=== PATIENT | female | born 2000 | race Caucasian/White ===

== ENCOUNTER → 2023-11-23 13:45 | Outpatient (REF) | payer OTHER, SELFPAY | LOC: HWRAD 13:45 | PROVIDERS: ATTENDING PHYSICIAN Family Medicine | DX: J34.2 Deviated nasal septum (principal) | CPT/HCPCS: 70486 ==

== ENCOUNTER 2024-01-07 23:57 | Emergency (ER) | payer OTHER, SELFPAY ==
[2024-01-07 23:58] VITALS: BP 115/82; BMI 17.2
[2024-01-08 00:13] LABS: % Basophils 0.4 % (0-2); % Immature Granulocytes 0.3 % (0-0.5); % Lymphocytes 10.5 % (20.5-51.1); % Neutrophils 80.8 % (42.2-75.2); Absolute Basophils 0.1 10^3/uL (0-0.2); Absolute Eosinophils 0.1 10^3/uL (0-0.7); Absolute Lymphocytes 1.5 10^3/uL (1.2-3.4); Absolute Neutrophils 11.2 10^3/uL (1.4-6.5); Hematocrit 31.7 % (37.0-47.0); Mean Corp Hgb Conc. 34.7 g/dL (33.0-37.0); Mean Corpuscular Hgb 28.7 pg (27.0-31.0); Mean Corpuscular Volume 82.8 fL (81.0-99.0); Mean Platelet Volume 9.3 fL (7.4-10.4); Nucleated Red Blood Cells % 0 %; Platelet Count 250 10^3/uL (130-400); Red Blood Cell Count 3.83 10^6/uL (4.20-5.40); White Blood Cell Count 13.9 10^3/uL (4.8-10.8)
--- NOTE | 2024-01-08 00:27 | ED.GENMED ---
History of Present Illness
General
Chief Complaint: Dehydration Symptoms
Source: patient
Exam Limitations: none
Time Seen by Provider: 01/08/24 00:06
History of Present Illness
History of Present Illness:
This is a 23 year old female that comes in with c/o sunburn. States that she was at the beach today and did not ate or drink much. States that she also got very sunburned. States that she was asleep and awoke and then started to vomit. States that
she had chills. Denies any fever, chest pain, SOB, abd pain, diarrhea, headache, dizziness, urinary burning.
Past History
Past History
ED Past Medical History: Psychiatric (Anxiety); Negative Asthma, HTN, Hypercholesterolemia or NIDDM
ED Past Surgical History: None
Social History
Tobacco: Non-smoker
Alcohol: None
Personal: Single
Living: with family
Review of Systems
Review of Systems
All Other Systems: ROS reviewed and negative except as documented in HPI and ROS
Constitutional: Reports chills; Denies fever
EENT: Reports no symptoms
Respiratory: Reports no symptoms; Denies cough or trouble breathing
Cardiac: Reports no symptoms; Denies chest pain
ABD/GI: Reports nausea and vomiting; Denies abdominal pain or diarrhea
: Reports no symptoms; Denies dysuria, frequency or urgency
Musculoskeletal: Reports no symptoms
Skin: Reports no symptoms
Neurological: Reports no symptoms; Denies dizzy or headache
Psychiatric: Reports no symptoms
Phy Exam
General Physical Exam
General Presentation: no apparent distress
General age: appears stated age
General Skin: warm and dry
General Habitus: normal
General Mental: alert
General Hydration: dry mucous membranes
ENT Exam
ENT Exam: TM's normal, pharynx normal and neck supple
Eye Exam
Eye Exam: EOMI
Cardiovascular Exam
Cardiovascular Exam: no edema, no murmur, normal peripheral pulses and tachycardia
Pulmonary Exam
Pulmonary Exam: lungs clear, no respiratory distress, no rales, no crackles, no rhonchi, no wheezing and no cough
Gastrointestinal Exam
Gastrointestinal Exam: normal bowel sounds, non tender, soft, no organomegaly, no pulsatile mass and non distended
Musculoskeletal Exam
Musculoskeletal Exam: full ROM and no edema
Skin Exam
Skin Exam: normal color, warm/dry, no petechia and other (Sunburn of the back and posterior legs)
Psychiatric Exam
Psychiatric Exam: normal mood/affect
Course
Orders/Labs/Results
Orders:
Orders
01/08/24 00:04
Test Result ONCE
01/08/24 00:05
Basic Metabolic Panel Urgent
Complete Blood Count/With Diff Urgent
HCG, Serum Qualitative Screen Urgent
01/08/24 00:26
0.9% Sodium Chloride 1000 ml [Nss] 1,000 ml IV BOLUS
01/08/24 00:29
Ondansetron Injectable [Zofran] 4 mg IV NOW STA
01/08/24 00:34
Ketorolac [Toradol] 30 mg .ROUTE .STK-MED ONE
01/08/24 00:35
Ketorolac [Toradol] 30 mg IV NOW STA
Abnormal Lab Results
01/08/24
00:05
WBC 13.9 H 10^3/uL
(4.8-10.8)
RBC 3.83 L 10^6/uL
(4.20-5.40)
Hgb 11.0 L g/dL
(12.0-16.0)
Hct 31.7 L %
(37.0-47.0)
Absolute Neuts (auto) 11.2 H 10^3/uL
(1.4-6.5)
Absolute Monos (auto) 1.0 H 10^3/uL
(0.1-0.6)
Neutrophils % 80.8 H %
(42.2-75.2)
Lymphocytes % 10.5 L %
(20.5-51.1)
Glucose 109 H mg/dl
(70-99)
01/08/24 00:05
01/08/24 00:05
Leukocytosis, H/H slightly low. Glucose nonfasting. HCG negative
Vital Signs
Initial and Last Documented VS:
Initial Vital Signs
Temp Pulse Resp BP Pulse Ox
98.7 F 114 16 115/82 99
01/07/24 23:58 01/07/24 23:58 01/07/24 23:58 01/07/24 23:58 01/07/24 23:58
Last Documented Vital Signs
Temp Pulse Resp BP Pulse Ox
98.7 F 109 16 110/75 99
01/07/24 23:58 01/08/24 01:00 01/08/24 01:00 01/08/24 01:00 01/08/24 01:00
MDM/Problems Addressed
Differential Diagnosis Includes:
Sunburn,
MDM/Problems Addressed:
This is a 23 year old female that comes in with c/o sunburn. States that she was at the beach and did not eat or drink much. States that she awoke form sleep tonight and then vomited. States that she is also very sunburned.
Will check labs and give IV fluids
Back into see patient. States that she is feeling much better. Encouraged patient to increase her water intake to 8-8oz glasses daily. Use Aloe or Vit E cream to her sunburn. Follow up with the family doctor as needed. Return with any concerns.
Chronic conditions affecting care:
NA
Acute Exacerbation and/or Progression of Chronic Illness:
NA
*Pulse Oximetry
Patient hypoxic: no
*EKG
Interpreted by ED Provider?: NA
Rate: EKG- N/A
*Sheet Metal Journeyman Interpretation
Rate: Sheet Metal Journeyman- N/A
*Critical Care Note
Total Time (30-74mins, 75-104mins- exclusive of procedures): Not Applicable
ED Attending Note
-
Portions of this chart may have been created with voice recognition software.� Occasional wrong word or��sound alike� substitutions may have occurred due to the inherent limitations of voice recognition software.
Discharge Plan
Departure
Patient Disposition: Home (Routine Discharge)
Date of Disposition: 01/08/24
Time of Disposition: 01:35
Patient with high blood pressure during this ER visit?: No
Condition: Good
Covid-19: Not Applicable
Discharge Problem:
Dehydration, Sunburn
Instructions: Dehydration, Adult (DC), Sunburn (DC)
Prescriptions:
No Action
paroxetine HCl 20 mg Tablet
20 mg PO DAILY
Referrals:
Jonnie Melgar Jr., MD [Family Provider] - As needed
Activity Restrictions/Additional Instructions:
As discussed, please increase your water intake to 8-8oz glasses daily. You may use an Aloe cream or Vit E to the sunburn to help with healing. Follow up with the family doctor as needed. Ibuprofen 600mg every 6 hours as needed for pain. You have
been given IV medication here so no further Ibuprofen to the morning. IF YOU HAVE ANY OTHER CONCERNS PLEASE RETURN TO THE EMERGENCY ROOM.
Interventions
Interventions:
*Risk Screen - Suicide Last Done: 01/07/24 23:58
*General Assessment Last Done: 01/07/24 23:58
*Neglect/Abuse Screening Last Done: 01/07/24 23:58
*ED COVID-19 Vaccine History Last Done: 01/07/24 23:58
ED- Cardiac Assessment Last Done: 01/08/24 00:08
ED- Neurological Assessment Last Done: 01/08/24 00:08
ED- Pulmonary Assessment Last Done: 01/08/24 00:08
Discharge Date and Time
Print Language: ANGUILLAN
[2024-01-08] MEDS: ZOFRAN 4 MG IV (00:32)
[2024-01-08] MEDS: NSS 1000 IV (00:32)
[2024-01-08] MEDS: TORADOL 30 MG IV (00:35)
[2024-01-08 00:37] VITALS: BP 111/75
[2024-01-08 00:43] LABS: HCG, Serum Qualitative Screen Negative
[2024-01-08 00:51] LABS: Blood Urea Nitrogen 11 mg/dl (7-17); Carbon Dioxide 23 mmol/L (22-30); Chloride 106 mmol/L (98-107); Estimated Creatinine Clearance 97 ml/min; Glucose 109 mg/dl (70-99); Sodium 137 mmol/L (135-145); eGFR > 60.00
[2024-01-08 01:00] VITALS: BP 110/75
[2024-01-08 01:36] VITALS: BP 107/73
== END 2024-01-08 01:44 | disposition home or self-care (01) ==
LOC: EMR 23:57
PROVIDERS: EMERGENCY PHYSICIAN Emergency Medicine; FAMILY PHYSICIAN Family Medicine
DX: E86.0 Dehydration (principal); L55.9 Sunburn, unspecified; F41.9 Anxiety disorder, unspecified
CPT/HCPCS: 99283; 96374; 96375; 96361; 80048; 84703; 85025

== ENCOUNTER 2024-02-23 15:44 | Emergency (ER) | payer OTHER, SELFPAY ==
[2024-02-23 15:46] VITALS: BP 123/96
[2024-02-23 16:01] LABS: % Basophils 0.8 % (0-2); % Immature Granulocytes 0.5 % (0-0.5); % Lymphocytes 16.1 % (20.5-51.1); % Monocytes 4.1 % (1.7-9.3); % Neutrophils 77.5 % (42.2-75.2); Absolute Basophils 0.1 10^3/uL (0-0.2); Absolute Eosinophils 0.1 10^3/uL (0-0.7); Absolute Lymphocytes 1.3 10^3/uL (1.2-3.4); Absolute Monocytes 0.3 10^3/uL (0.1-0.6); Absolute Neutrophils 6.1 10^3/uL (1.4-6.5); Hematocrit 34.9 % (37.0-47.0); Mean Corp Hgb Conc. 34.4 g/dL (33.0-37.0); Mean Corpuscular Hgb 29.3 pg (27.0-31.0); Mean Corpuscular Volume 85.1 fL (81.0-99.0); Nucleated Red Blood Cells % 0 %; Platelet Count 330 10^3/uL (130-400); Red Cell Dist. Width 12.4 % (11.5-14.5); White Blood Cell Count 7.8 10^3/uL (4.8-10.8)
[2024-02-23 16:21] LABS: ALT (SGPT) 11 U/L (0-35); AST (SGOT) 23 U/L (14-36); Albumin 4.5 g/dl (3.5-5.0); Alkaline Phosphatase 43 U/L (38-126); Blood Urea Nitrogen 11 mg/dl (7-17); Calcium 9.8 mg/dl (8.4-10.2); Carbon Dioxide 26 mmol/L (22-30); Chloride 104 mmol/L (98-107); Glucose 135 mg/dl (70-99); Potassium 3.9 mmol/L (3.5-5.1); Sodium 141 mmol/L (135-145); Total Bilirubin 0.3 mg/dl (0.2-1.3); Total Protein 7.2 g/dl (6.3-8.2); eGFR > 60.00
[2024-02-23 16:27] LABS: HCG, Serum Qualitative Screen Negative
[2024-02-23 18:49] LABS: Urine Albumin Trace (Neg - Trace); Urine Bilirubin Negative (Negative); Urine Character Clear (Clear); Urine Color Yellow; Urine Glucose Negative (Negative); Urine Ketone Negative (Negative); Urine Leukocyte 1+ (Negative); Urine Nitrite Negative (Negative); Urine Occult Blood 4+ (Negative); Urine Urobilinogen Negative (Neg - 1+)
--- NOTE | 2024-02-23 19:26 | ED.GENMED ---
History of Present Illness
General
Chief Complaint: Abdominal Symptoms
Time Seen by Provider: 02/23/24 18:10
History of Present Illness
History of Present Illness:
23-year-old female without significant past medical history presenting to the emergency department for nausea and dry heaving. Patient reports around noon she was eating toast and a granola bar and started to have upper abdominal discomfort with
dry heaving. She called the medics to bring her to the hospital, and medics gave her Zofran. Since arriving to the hospital receiving Zofran, reports that her symptoms have improved. Reports that she is currently on her menstrual cycle, so is
having some lower abdominal cramping. Denies any present abdominal pain or urinary symptoms. Denies any vomiting. Denies chest pain or difficulty breathing. Denies any abdominal surgeries in the past. Denies additional medical complaints.
Past History
Past History
ED Past Medical History: Psychiatric (Anxiety); Negative Asthma, HTN, Hypercholesterolemia or NIDDM
ED Past Surgical History: None
Social History
Tobacco: Non-smoker
Alcohol: None
Personal: Single
Living: with family
Phy Exam
Physical Exam
Physical Exam:
General: Well-appearing, no clinical signs of dehydration, nontoxic and in no acute distress
HEENT: protecting airway
Neck: appears supple
CV: Normal heart rate, regular rhythm
Resp: No accessory muscle use, no increased work of breathing, lungs clear to auscultation bilaterally
Abd: Soft and non-distended, no tenderness to palpation
Extremities: No deformities, no swelling, no erythema, pulses and sensation intact
Neuro: alert, no focal neurologic deficit
: deferred
Rectal: deferred
Psych: Normal affect
Skin: Intact
Course
Orders/Labs/Results
Orders:
Orders
02/23/24 15:49
Test Result ONCE
02/23/24 15:53
Complete Blood Count/With Diff Urgent
Comprehensive Metabolic Panel Urgent
HCG, Serum Qualitative Screen Urgent
02/23/24 16:22
ECG [Electrocardiogram (*1)] Urgent
Reason for Study: Palpitations
EKG- Treatment ONCE
02/23/24 18:42
Urinalysis Reflex To Culture Urgent
Date Specimen was Collected: 02/23/24
Time Specimen was Collected: 18:28
Urine Microscopic Reflex Cult Urgent
Urine Culture Urgent
FEMI Source: U
Specimen Description:
Date Specimen was Collected: 02/23/24
Time Specimen was Collected: 18:28
Abnormal Lab Results
02/23/24 02/23/24
15:53 18:42
RBC 4.10 L 10^6/uL
(4.20-5.40)
Hct 34.9 L %
(37.0-47.0)
Neutrophils % 77.5 H %
(42.2-75.2)
Lymphocytes % 16.1 L %
(20.5-51.1)
Glucose 135 H mg/dl
(70-99)
Ur Occult Blood Reflex 4+ A
(Negative)
Leukocyte Esterase Rfl 1+ A
(Negative)
Urine RBC 60-70 A /HPF
(0-2)
Urine Bacteria (Reflex) Few A
(Negative)
02/23/24 15:53
02/23/24 15:53
Vital Signs
Initial and Last Documented VS:
Initial Vital Signs
Temp Pulse Resp BP Pulse Ox
99.2 F 108 20 123/96 99
02/23/24 15:46 02/23/24 15:46 02/23/24 15:46 02/23/24 15:46 02/23/24 15:46
Last Documented Vital Signs
Temp Pulse Resp BP Pulse Ox
97.8 F 108 20 106/72 97
02/23/24 19:30 02/23/24 15:46 02/23/24 15:46 02/23/24 19:30 02/23/24 19:30
MDM/Problems Addressed
MDM/Problems Addressed:
23-year-old female without significant past medical history presenting to the emergency department for nausea. Vital signs are normal.
On arrival to the hospital, patient is well-appearing, no acute distress. Reports that her symptoms have resolved after receiving Zofran from medics. Patient afebrile, nontoxic. Unremarkable abdominal exam, without any reproducible tenderness.
Does that symptoms were preceded by eating. Suspect past gastric component. Nursing protocol placed prior to my assessment, urinalysis. No indication for abdominal imaging at this time in the absence of any symptoms or tenderness.
19:30 - Labs are unremarkable, negative . Patient remains asymptomatic. At this time feel stable for discharge with continued outpatient supportive therapy. Will prescribe Zofran. Return precautions discussed and patient verbalized
understanding
*Critical Care Note
Total Time (30-74mins, 75-104mins- exclusive of procedures): Not Applicable
ED Attending Note
-
Portions of this chart may have been created with voice recognition software.� Occasional wrong word or��sound alike� substitutions may have occurred due to the inherent limitations of voice recognition software.
Discharge Plan
Departure
Patient Disposition: Home (Routine Discharge)
Date of Disposition: 02/23/24
Time of Disposition: 19:29
Patient with high blood pressure during this ER visit?: No
Condition: Good
Discharge Problem:
Nausea, Abdominal pain
Instructions: Nausea and Vomiting, Adult (DC)
Prescriptions:
New
ondansetron 4 mg Tablet,Disintegrating
4 mg PO TIDPRN PRN (Reason: nausea/vomiting) Qty: 4 0RF
No Action
paroxetine HCl 20 mg Tablet
20 mg PO DAILY
Activity Restrictions/Additional Instructions:
You were seen in the emergency department for nausea
You were found to have normal laboratory analysis, and your symptoms resolved.
Please follow-up closely with your primary care physician.
Return to the emergency department for any worsening of your symptoms, or any development of chest pain, difficulty breathing, abdominal pain with persistent vomiting and inability to tolerate food or liquid by mouth (concern for dehydration),
weakness, headache or confusion, fever greater than 100.4, or any additional symptoms that are concerning to you.
Thank you for choosing [facility].
Interventions
Interventions:
*Risk Screen - Suicide Last Done: 02/23/24 18:32
*General Assessment Last Done: 02/23/24 18:32
*Neglect/Abuse Screening Last Done: 02/23/24 18:32
ED- Fall Risk Assessment Last Done: 02/23/24 19:52
*Nursing Disposition Last Done: 02/23/24 19:52
RW-Yiipul-Wnmrrnlfva Assessment Last Done: 02/23/24 18:32
Discharge Date and Time
Discharge Date/Time: 02/23/24 19:52
Print Language: [place]
[2024-02-23 19:29] LABS: Urine Bacteria Few (Negative); Urine Red Blood Cell 60-70 /HPF (0-2)
[2024-02-23 19:30] VITALS: BP 106/72
== END 2024-02-23 19:52 | disposition home or self-care (01) ==
LOC: EMR 15:44
PROVIDERS: EMERGENCY PHYSICIAN Student in an Organized Health Care Education/Training Program; FAMILY PHYSICIAN Family Medicine
DX: R11.2 Nausea with vomiting, unspecified (principal); R10.10 Upper abdominal pain, unspecified; R10.30 Lower abdominal pain, unspecified; R00.2 Palpitations; F41.9 Anxiety disorder, unspecified
CPT/HCPCS: 99283; 80053; 81003; 81015; 84703; 85025; 87086; 93005

== ENCOUNTER 2024-04-25 06:04 | Emergency (ER) | payer OTHER, SELFPAY ==
[2024-04-25 06:05] VITALS: BP 124/83
[2024-04-25 06:39] VITALS: BMI 19.9
[2024-04-25 06:50] LABS: COVID-19 Antigen Negative (Negative)
[2024-04-25 06:51] VITALS: BP 105/87
--- NOTE | 2024-04-25 06:57 | ED.GENMED ---
ED Provider Triage
<America Amaro MD, Resident - Last Filed: 04/25/24 07:49>
-
Patient seen by provider in Triage?: Seen in Triage
History of Present Illness
<America Amaro MD, Resident - Last Filed: 04/25/24 07:49>
General
Chief Complaint: Cold/Flu/URI Symptoms
Source: patient
Exam Limitations: none
Time Seen by Provider: 04/25/24 06:21
Travel History
Have you traveled to any high risk areas for coronavirus over the past 14 days?: No
Have you had any contact with someone who has COVID-19?: No
Do you have any symptoms of coronavirus? Fever > 100 degrees, chills, cough, shortness of breath, sore throat, loss of taste or smell, muscle aches, or headache?: No
History of Present Illness
History of Present Illness:
23-year-old female with PMHx of depression on paroxetine 20 mg presented to the ER with 3-day onset of sore throat and fever. It started with sore throat, runny and stuffy nose and postnasal drip. Over the initial 2 days she felt subjective fevers
but her temperature was never more than 100, she felt aural fullness and her left ear popping up every time she yawns or chews with pain. She also started taking Tylenol and Advil alternatingly over the last 3 days. She started having nausea in
the morning when she decided to come to the ER. Sore throat, fevers are associated with chills and hot flashes, but no rigors.
She denies having cough, sputum production, vomitings, diarrhea, abdominal pain, dysphagia, odynophagia, ear discharge, sick contacts or travel.
She is currently on her menstrual cycle.
She is up-to-date on all childhood vaccinations as well as recent flu and COVID boosters.
If applicable-neuro sx onset
Onset of symptoms known: No
Time pt last seen normal is known: No
Past History
<America Amaro MD, Resident - Last Filed: 04/25/24 07:49>
Past History
ED Past Medical History: Psychiatric (Anxiety); Negative Asthma, HTN, Hypercholesterolemia or NIDDM
ED Past Surgical History: None
Social History
Tobacco: Non-smoker
Alcohol: None
Drug: None
Personal: Single
Living: with family
Employment: Employed
Family History
Family History: Other (Not pertinent.)
Review of Systems
<America Amaro MD, Resident - Last Filed: 04/25/24 07:49>
Review of Systems
Allergies reviewed?: Yes
Constitutional: Reports weight gain and chills
EENT: Reports sore throat
Respiratory: Reports no symptoms
Cardiac: Reports no symptoms
ABD/GI: Reports nausea; Denies vomiting, diarrhea, black stools or anorexia
: Reports no symptoms
Musculoskeletal: Reports no symptoms
Skin: Reports no symptoms
Neurological: Reports no symptoms
Endocrine: Reports no symptoms
Hematologic/Lymphatic: Reports no symptoms
Psychiatric: Reports no symptoms
Phy Exam
<America Amaro MD, Resident - Last Filed: 04/25/24 07:49>
General Physical Exam
General Presentation: well appearing and no apparent distress
General Skin: warm
General Habitus: normal
General Mental: alert
General Hydration: appears well hydrated
ENT Exam
ENT Exam: EOMI, TM's normal, pharyngeal erythema and tonsillar exudate (Negative.)
Eye Exam
Eye Exam: PERRL and EOMI
Cardiovascular Exam
Cardiovascular Exam: regular rate/rhythm, no edema, no gallop, no JVD and no murmur
Heart Sounds: normal
Pulmonary Exam
Pulmonary Exam: lungs clear, no respiratory distress, no rales, no crackles, no rhonchi and no wheezing
Gastrointestinal Exam
Gastrointestinal Exam: normal bowel sounds, non tender, soft and non distended
Auscultation of Abdomen: normal
Neurological Exam
Neurological Exam: alert, oriented x3 and no motor deficits
Musculoskeletal Exam
Musculoskeletal Exam: full ROM and no edema
Skin Exam
Skin Exam: normal color
Psychiatric Exam
Psychiatric Exam: normal mood/affect
Course
<America Amaro MD, Resident - Last Filed: 04/25/24 07:49>
Orders/Labs/Results
Orders:
Orders
04/25/24 06:14
COVID-19 Antigen Urgent
Source: Nasal Swab
Influenza A+B Rapid Molecular Urgent
FEMI Source: Nasal Swab
Specimen Description:
04/25/24 06:44
Rapid Strep Group A Urgent
FEMI Source: Throat/Pharynx
Specimen Description:
Date Specimen was Collected: 04/25/24
Time Specimen was Collected: 06:42
Throat Culture [Throat Culture, Comprehensive] Urgent
FEMI Source: Throat/Pharynx
Specimen Description:
Date Specimen was Collected: 04/25/24
Time Specimen was Collected: 06:42
04/25/24 06:47
Ondansetron HCl [Zofran] 4 mg PO NOW STA
Patient's most recent Tylenol 1000 mg dosing was at 5 5 AM in the morning today, currently she is not nauseous.
COVID and flu test negative.
Rapid strep throat testing and throat cultures obtained.
If cultures negative, this is most likely to be a viral URI.
Vital Signs
Initial and Last Documented VS:
Initial Vital Signs
Temp Pulse Resp BP Pulse Ox
98.6 F 111 16 124/83 98
04/25/24 06:05 04/25/24 06:05 04/25/24 06:05 04/25/24 06:05 04/25/24 06:05
Last Documented Vital Signs
Temp Pulse Resp BP Pulse Ox
98.1 F 98 15 105/87 98
04/25/24 06:51 04/25/24 06:51 04/25/24 06:51 04/25/24 06:51 04/25/24 06:51
<Edilberto Cabrera MD - Last Filed: 04/25/24 07:13>
Orders/Labs/Results
Orders:
Orders
04/25/24 06:14
COVID-19 Antigen Urgent
Source: Nasal Swab
Influenza A+B Rapid Molecular Urgent
FEMI Source: Nasal Swab
Specimen Description:
04/25/24 06:44
Rapid Strep Group A Urgent
FEMI Source: Throat/Pharynx
Specimen Description:
Date Specimen was Collected: 04/25/24
Time Specimen was Collected: 06:42
Throat Culture [Throat Culture, Comprehensive] Urgent
FEMI Source: Throat/Pharynx
Specimen Description:
Date Specimen was Collected: 04/25/24
Time Specimen was Collected: 06:42
04/25/24 06:47
Ondansetron HCl [Zofran] 4 mg PO NOW STA
Vital Signs
Initial and Last Documented VS:
Initial Vital Signs
Temp Pulse Resp BP Pulse Ox
98.6 F 111 16 124/83 98
04/25/24 06:05 04/25/24 06:05 04/25/24 06:05 04/25/24 06:05 04/25/24 06:05
Last Documented Vital Signs
Temp Pulse Resp BP Pulse Ox
98.1 F 98 15 105/87 98
04/25/24 06:51 04/25/24 06:51 04/25/24 06:51 04/25/24 06:51 04/25/24 06:51
<America Amaor MD, Resident - Last Filed: 04/25/24 07:49>
*Critical Care Note
Total Time (30-74mins, 75-104mins- exclusive of procedures): Not Applicable
ED Attending Note
<America Amaro MD, Resident - Last Filed: 04/25/24 07:49>
-
Portions of this chart may have been created with voice recognition software.� Occasional wrong word or��sound alike� substitutions may have occurred due to the inherent limitations of voice recognition software.
<Edilberto Cabrera MD - Last Filed: 04/25/24 07:13>
ED Attending Note
Patient seen and examined by attending physician: Yes
I performed a history and physical exam of patient and discussed management with resident, I reviewed resident's note and agree with documented findings and plan of care.: Yes
ED Attending Note:
23-year-old female 2 to 3 days sore throat fevers myalgias aches. Some nausea this morning. Nausea has resolved. No cough no shortness of breath no abdominal no other complaints.
GENERAL: Alert and oriented in no apparent distress
EYE: Orbits normal.
NECK: Supple
ENT: Pharynx with mild diffuse pharyngeal erythema. No exudate. No asymmetrical swelling. No drooling no stridor
CARDIAC: Regular rate and rhythm without any obvious murmurs.
LUNGS: Clear breath sounds,normal
ABDOMEN: Soft, without focal tenderness or distention
NEUROLOGICAL: Alert and oriented , grossly non-focal
SKIN: Warm and dry, no rash or lesion, no discoloration, skin intact.
MUSCULOSKELETAL: No edema,no deformity.Good color
PSYCH: Normal and appropriate interaction.
Impression symptoms consistent with a viral syndrome. COVID and flu testing done for completeness. Rapid strep and throat culture done. Rapid strep is positive we will cover with antibiotics. If negative symptomatic treatment for a viral
syndrome and follow-up
Discharge Plan
Departure
Patient Disposition: Home (Routine Discharge)
Date of Disposition: 04/25/24
Time of Disposition: 07:47
Patient with high blood pressure during this ER visit?: Yes
Condition: Good
Discharge Problem:
URI (upper respiratory infection)
Instructions: Fever, Adult (DC), Viral Syndrome (DC), BLOOD PRESSURE
Prescriptions:
No Action
paroxetine HCl 20 mg Tablet
20 mg PO DAILY
ondansetron 4 mg Tablet,Disintegrating
4 mg PO TIDPRN PRN (Reason: nausea/vomiting) Qty: 4 0RF
Activity Restrictions/Additional Instructions:
If symptoms does not subside follow-up with your primary care in 7 days.
Interventions
Interventions:
*Risk Screen - Suicide Last Done: 04/25/24 06:05
*General Assessment Last Done: 04/25/24 06:39
*Neglect/Abuse Screening Last Done: 04/25/24 06:52
ED- Fall Risk Assessment Last Done: 04/25/24 06:39
*ED COVID-19 Vaccine History Last Done: 04/25/24 06:39
ED- Pulmonary Assessment Last Done: 04/25/24 07:03
Discharge Date and Time
Print Language: SURINAM[place]
== END 2024-04-25 07:56 | disposition home or self-care (01) ==
LOC: EMR 06:04
PROVIDERS: Emergency Medicine; EMERGENCY PHYSICIAN Emergency Medicine; FAMILY PHYSICIAN Family Medicine
DX: J06.9 Acute upper respiratory infection, unspecified (principal); F41.9 Anxiety disorder, unspecified
CPT/HCPCS: 99282; 87070; 87502; 87811; 87880

== ENCOUNTER 2024-04-25 15:19 | Emergency (ER) | payer OTHER, SELFPAY ==
--- NOTE | 2024-04-25 15:22 | ED.GENMED ---
ED Provider Triage
<Binaka Bennett PA-C - Last Filed: 04/25/24 15:26>
-
Patient seen by provider in Triage?: Seen in Triage
Attestation: A medical screening examination has been initiated by a qualified medical provider. Based on the assessment performed at this time, it has been determined that an emergent medical condition may exist and the patient has been informed
that further medical evaluation and possible additional diagnostic testing may be needed.
HPI: 23yoF here with flu-like symptoms x 3 days. C/o sore throat and body aches. Now with nausea today. No vomiting. Tmax 101 this morning. Seen in the ED earlier today. COVID/flu and strep testing negative. IV Zofran given prehospital and nausea
improved.
GENERAL: Alert , in no apparent distress
EYE: No visual abnormalities.
NECK: Trachea midline
ENT: No visible abnormalities.
LUNGS: No acute respiratory distress
NEUROLOGICAL: Alert and oriented
SKIN: Skin intact. No visible changes.
MUSCULOSKELETAL: Moving extremities normally
PSYCH: Normal and appropriate interaction.
This is a medical evaluation conducted in person to initiate diagnostic evaluation and provide initial therapeutics. Please see further documentation by the treating clinician.
CBC, CMP, monospot, and HCG testing ordered.
History of Present Illness
<Bianka Bennett PA-C - Last Filed: 04/25/24 15:26>
General
Chief Complaint: Abdominal Symptoms
Time Seen by Provider: 04/25/24 18:34
<Franco Crowell PA-C - Last Filed: 04/25/24 20:16>
General
Source: patient
History of Present Illness
History of Present Illness:
23-year-old female presenting back to the emergency department for evaluation after being seen earlier this morning diagnosed with suspected viral syndrome due to continued nausea and sore throat. Patient endorses associated body aches, chills and
fevers. Patient was tested for COVID flu and strep earlier which all resulted in negative tests.
Past History
<Bianka Bennett PA-C - Last Filed: 04/25/24 15:26>
Past History
ED Past Medical History: Psychiatric (Anxiety); Negative Asthma, HTN, Hypercholesterolemia or NIDDM
ED Past Surgical History: None
Social History
Tobacco: Non-smoker
Alcohol: None
Drug: None
Personal: Single
Living: with family
Employment: Employed
Family History
Family History: Other (Not pertinent.)
Review of Systems
<Franco Crowell PA-C - Last Filed: 04/25/24 20:16>
Review of Systems
All Other Systems: ROS reviewed and negative except as documented in HPI and ROS
Phy Exam
<Franco Crowell PA-C - Last Filed: 04/25/24 20:16>
Physical Exam
Physical Exam:
GENERAL: Alert , in no apparent distress
EYE: conjunctiva clear
NECK: Supple, anterior cervical lymphadenopathy.
ENT: o/p clr, mmm. no tonsillar edema/exudates
CARDIAC: Regular rate and rhythm
LUNGS: Clear breath sounds bilaterally, no acute respiratory distress, no wheezes/rales/rhonchi
NEUROLOGICAL: Alert and oriented
SKIN: Warm and dry, skin intact.
MUSCULOSKELETAL: well perfused.
PSYCH: Normal and appropriate interaction.
Scores
<Franco Crowell PA-C - Last Filed: 04/25/24 20:16>
Heart Failure Risk
Heart Failure Risk Score: Not Applicable
Heart Score for Chest Pain Patients
STEMI patient?: Not applicable
Withdrawal Assessment of Alcohol
Withdrawal Assessment Completed?: Not applicable
Course
<Bianka Bennett PA-C - Last Filed: 04/25/24 15:26>
Orders/Labs/Results
Orders:
Orders
04/25/24 15:26
Test Result ONCE
04/25/24 15:28
Complete Blood Count/With Diff Urgent
Comprehensive Metabolic Panel Urgent
HCG, Serum Qualitative Screen Urgent
Monotest Urgent
04/25/24 18:43
0.9% Sodium Chloride 1000 ml [Nss] 1,000 ml IV BOLUS
Benzocaine/Menthol [Anesthetic Lozenge] 1 lozenge PO NOW STA
Ondansetron Injectable [Zofran] 4 mg IV NOW STA
04/25/24 18:59
Benzocaine/Menthol [Anesthetic Lozenge] 1 lozenge .ROUTE .STK-MED ONE
04/25/24 19:28
Acetaminophen [Tylenol] 650 mg .ROUTE .STK-MED ONE
04/25/24 19:29
Acetaminophen [Tylenol] 650 mg PO NOW STA
Abnormal Lab Results
04/25/24
15:28
Hgb 11.7 L g/dL
(12.0-16.0)
Hct 34.6 L %
(37.0-47.0)
Absolute Lymphs (auto) 0.8 L 10^3/uL
(1.2-3.4)
Neutrophils % 82.2 H %
(42.2-75.2)
Lymphocytes % 10.7 L %
(20.5-51.1)
Potassium 3.2 L mmol/L
(3.5-5.1)
Creatinine 0.5 L mg/dL
(0.6-1.0)
Glucose 131 H mg/dl
(70-99)
Total Bilirubin 0.1 L mg/dl
(0.2-1.3)
Monoscreen Positive A
(Negative)
04/25/24 15:28
04/25/24 15:28
Vital Signs
Initial and Last Documented VS:
Initial Vital Signs
Temp Pulse Resp BP Pulse Ox
98.5 F 108 20 121/80 99
04/25/24 15:24 04/25/24 15:24 04/25/24 15:24 04/25/24 15:24 04/25/24 15:24
Last Documented Vital Signs
Temp Pulse Resp BP Pulse Ox
98.5 F 108 20 121/80 99
04/25/24 15:24 04/25/24 15:24 04/25/24 15:24 04/25/24 15:24 04/25/24 15:24
<Franco Crowell PA-C - Last Filed: 04/25/24 20:16>
Orders/Labs/Results
Orders:
Orders
04/25/24 15:26
Test Result ONCE
04/25/24 15:28
Complete Blood Count/With Diff Urgent
Comprehensive Metabolic Panel Urgent
HCG, Serum Qualitative Screen Urgent
Monotest Urgent
04/25/24 18:43
0.9% Sodium Chloride 1000 ml [Nss] 1,000 ml IV BOLUS
Benzocaine/Menthol [Anesthetic Lozenge] 1 lozenge PO NOW STA
Ondansetron Injectable [Zofran] 4 mg IV NOW STA
04/25/24 18:59
Benzocaine/Menthol [Anesthetic Lozenge] 1 lozenge .ROUTE .STK-MED ONE
04/25/24 19:28
Acetaminophen [Tylenol] 650 mg .ROUTE .STK-MED ONE
04/25/24 19:29
Acetaminophen [Tylenol] 650 mg PO NOW STA
Abnormal Lab Results
04/25/24
15:28
Hgb 11.7 L g/dL
(12.0-16.0)
Hct 34.6 L %
(37.0-47.0)
Absolute Lymphs (auto) 0.8 L 10^3/uL
(1.2-3.4)
Neutrophils % 82.2 H %
(42.2-75.2)
Lymphocytes % 10.7 L %
(20.5-51.1)
Potassium 3.2 L mmol/L
(3.5-5.1)
Creatinine 0.5 L mg/dL
(0.6-1.0)
Glucose 131 H mg/dl
(70-99)
Total Bilirubin 0.1 L mg/dl
(0.2-1.3)
Monoscreen Positive A
(Negative)
04/25/24 15:28
04/25/24 15:28
Vital Signs
Initial and Last Documented VS:
Initial Vital Signs
Temp Pulse Resp BP Pulse Ox
98.5 F 108 20 121/80 99
04/25/24 15:24 04/25/24 15:24 04/25/24 15:24 04/25/24 15:24 04/25/24 15:24
Last Documented Vital Signs
Temp Pulse Resp BP Pulse Ox
98.5 F 108 20 121/80 99
04/25/24 15:24 04/25/24 15:24 04/25/24 15:24 04/25/24 15:24 04/25/24 15:24
<Franco Crowell PA-C - Last Filed: 04/25/24 20:16>
MDM/Problems Addressed
Differential Diagnosis Includes:
[place], COVID, flu, other viral etiology
MDM/Problems Addressed:
23-year-old female presenting back to the emergency department after being seen earlier today for nausea, diminished p.o. intake and other viral-like symptoms. Labs including monotest were ordered from triage and patient did test positive for mono.
Explained to patient symptoms of mono and what to expect. Will treat with Tylenol, fluids and Zofran. Once fluids completed patient will be stable for discharge home and continued supportive care at home.
<Franco Crowell PA-C - Last Filed: 04/25/24 20:16>
*Pulse Oximetry
Patient hypoxic: no
*Critical Care Note
Total Time (30-74mins, 75-104mins- exclusive of procedures): Not Applicable
Data Reviewed
Review of Other/Old Records Reveals: Labs and Records
<Franco Crowell PA-C - Last Filed: 04/25/24 20:16>
Patient Management
Social determinants of health affecting care: Living situation and Strong social support
ED Attending Note
<Bianka Bennett PA-C - Last Filed: 04/25/24 15:26>
-
Portions of this chart may have been created with voice recognition software.� Occasional wrong word or��sound alike� substitutions may have occurred due to the inherent limitations of voice recognition software.
Discharge Plan
Departure
Patient Disposition: Home (Routine Discharge)
Date of Disposition: 04/25/24
Time of Disposition: 19:46
Patient with high blood pressure during this ER visit?: No
Discharge Problem:
Mononucleosis
Instructions: Mononucleosis
Prescriptions:
No Action
paroxetine HCl 20 mg Tablet
20 mg PO DAILY
ondansetron 4 mg Tablet,Disintegrating
4 mg PO TIDPRN PRN (Reason: nausea/vomiting) Qty: 4 0RF
Referrals:
Jonnie Melgar MD [Family Provider] -
Stand Alone Forms: Return to Work
Interventions
Interventions:
*Risk Screen - Suicide Last Done: 04/25/24 18:32
*General Assessment Last Done: 04/25/24 18:32
*Neglect/Abuse Screening Last Done: 04/25/24 18:32
*ED COVID-19 Vaccine History Last Done: 04/25/24 18:32
EX-Jdzdwi-Tohrdzrmtg Assessment Last Done: 04/25/24 18:31
Discharge Date and Time
Print Language: ARMENIAN
[2024-04-25 15:24] VITALS: BP 121/80
[2024-04-25 15:40] LABS: % Basophils 0.7 % (0-2); % Eosinophils 0.5 % (0-6); % Immature Granulocytes 0.4 % (0-0.5); % Lymphocytes 10.7 % (20.5-51.1); % Monocytes 5.5 % (1.7-9.3); % Neutrophils 82.2 % (42.2-75.2); Absolute Basophils 0.1 10^3/uL (0-0.2); Absolute Lymphocytes 0.8 10^3/uL (1.2-3.4); Absolute Monocytes 0.4 10^3/uL (0.1-0.6); Absolute Neutrophils 6.3 10^3/uL (1.4-6.5); Hematocrit 34.6 % (37.0-47.0); Hemoglobin 11.7 g/dL (12.0-16.0); Mean Corp Hgb Conc. 33.8 g/dL (33.0-37.0); Mean Corpuscular Hgb 27.6 pg (27.0-31.0); Mean Corpuscular Volume 81.6 fL (81.0-99.0); Mean Platelet Volume 9.1 fL (7.4-10.4); Nucleated Red Blood Cells % 0 %; Platelet Count 281 10^3/uL (130-400); Red Blood Cell Count 4.24 10^6/uL (4.20-5.40); Red Cell Dist. Width 12.6 % (11.5-14.5); White Blood Cell Count 7.7 10^3/uL (4.8-10.8)
[2024-04-25 15:54] LABS: HCG, Serum Qualitative Screen Negative
[2024-04-25 15:55] LABS: ALT (SGPT) 13 U/L (0-35); AST (SGOT) 20 U/L (14-36); Albumin 3.7 g/dl (3.5-5.0); Alkaline Phosphatase 39 U/L (38-126); Blood Urea Nitrogen 7 mg/dl (7-17); Calcium 8.4 mg/dl (8.4-10.2); Carbon Dioxide 23 mmol/L (22-30); Chloride 107 mmol/L (98-107); Glucose 131 mg/dl (70-99); Potassium 3.2 mmol/L (3.5-5.1); Sodium 141 mmol/L (135-145); Total Bilirubin 0.1 mg/dl (0.2-1.3); Total Protein 6.4 g/dl (6.3-8.2); eGFR > 60.00
[2024-04-25 16:33] LABS: Monotest Positive (Negative)
[2024-04-25] MEDS: NSS 1000 IV (18:54)
[2024-04-25] MEDS: ZOFRAN 4 MG IV (18:54)
[2024-04-25] MEDS: ANESTHETIC LOZENGE 1 LOZENGE PO (18:55)
[2024-04-25] MEDS: TYLENOL 650 MG PO (19:30)
== END 2024-04-25 20:19 | disposition home or self-care (01) ==
LOC: EMR 15:19
PROVIDERS: Physician Assistant; EMERGENCY PHYSICIAN Emergency Medicine
DX: B27.90 Infectious mononucleosis, unspecified without complication (principal); F41.9 Anxiety disorder, unspecified; Z20.822 Contact with and (suspected) exposure to COVID-19
CPT/HCPCS: 99283; 96374; 96361; 80053; 84703; 85025; 86308

== ENCOUNTER 2024-06-04 01:18 | Emergency (ER) | payer OTHER, SELFPAY ==
[2024-06-04 01:21] VITALS: BP 118/72
--- NOTE | 2024-06-04 01:35 | ED.GENMED ---
History of Present Illness
<ADAM Lino - Last Filed: 06/04/24 02:46>
General
Chief Complaint: Fever
Source: patient
Time Seen by Provider: 06/04/24 01:35
Nursing documentation reviewed up to this point in time: agreed with
History of Present Illness
History of Present Illness:
Pt is a 23 yo F who presents to the emergency department for a fever. The patient states that earlier today she developed body aches and a fever. She stats that the Tmax was 104F. She explains that around 11pm she took 2 extra strength Tylenol for
the fever and soon after taking the medicine she vomited. She states that she has not tried to eat or drink anything since she vomited. She states that she began to have chills after vomiting. Pt states that her lower back began to hurt. Pt denies
abdominal pain, cough, nasal congestion, rhinorrhea, urinary urgency or frequency, dysuria.
Pt states that she took 2 at home COVID tests which were negative. Pt had mono in April. She reports that she has had the COVID vaccines but has not had the influenza vaccine for this year.
Past History
<ADAM Lino - Last Filed: 06/04/24 02:46>
Past History
ED Past Medical History: Psychiatric (Anxiety); Negative Asthma, HTN, Hypercholesterolemia or NIDDM
ED Past Surgical History: None
Social History
Tobacco: Non-smoker
Alcohol: None
Drug: None
Personal: Single
Living: with family
Employment: Employed
Family History
Family History: Other (Not pertinent.)
Review of Systems
<ADAM Lino - Last Filed: 06/04/24 02:46>
Review of Systems
Allergies reviewed?: Yes
Constitutional: Reports fever and chills
EENT: Reports no symptoms
Respiratory: Reports no symptoms
Cardiac: Reports no symptoms
ABD/GI: Reports nausea and vomiting
: Reports no symptoms
Musculoskeletal: Reports back pain
Skin: Reports no symptoms
Neurological: Reports no symptoms
Phy Exam
<Kinjal Lam [facility] - Last Filed: 06/04/24 02:46>
General Physical Exam
General Presentation: well appearing and no apparent distress
General age: appears stated age
General Skin: warm
General Habitus: normal
General Mental: alert
General Hydration: appears well hydrated
Cardiovascular Exam
Cardiovascular Exam: regular rate/rhythm
Pulmonary Exam
Pulmonary Exam: lungs clear
Gastrointestinal Exam
Gastrointestinal Exam: normal bowel sounds, non tender, soft, non distended and no cva tenderness
Course
<Kinjal Lam, [facility] - Last Filed: 06/04/24 02:46>
Orders/Labs/Results
Orders:
Orders
06/04/24 01:49
COVID-19 Antigen Urgent
Source: Nasal Swab
Influenza A+B Rapid Molecular Urgent
FEMI Source: Nasal Swab
Specimen Description:
06/04/24 02:46
Chest [CR Chest - 2 Views ] Urgent
Comment:
Reason For Exam: fever
06/04/24 03:12
Urinalysis Reflex To Culture Urgent
Date Specimen was Collected: 06/04/24
Time Specimen was Collected: 03:11
Urine Microscopic Reflex Cult Urgent
Abnormal Lab Results
06/04/24
03:12
Urine Ketones 3+ A
(Negative)
Leukocyte Esterase Rfl Trace A
(Negative)
Vital Signs
Initial and Last Documented VS:
Initial Vital Signs
Temp Pulse Resp BP Pulse Ox
99.2 F 122 20 118/72 97
06/04/24 01:21 06/04/24 01:21 06/04/24 01:21 06/04/24 01:21 06/04/24 01:21
Last Documented Vital Signs
Temp Pulse Resp BP Pulse Ox
99.2 F 122 20 109/77 97
06/04/24 01:21 06/04/24 01:21 06/04/24 01:21 06/04/24 01:43 06/04/24 01:45
<Camilo Anton, - Last Filed: 06/04/24 04:21>
Orders/Labs/Results
Orders:
Orders
06/04/24 01:49
COVID-19 Antigen Urgent
Source: Nasal Swab
Influenza A+B Rapid Molecular Urgent
FEMI Source: Nasal Swab
Specimen Description:
06/04/24 02:46
Chest [CR Chest - 2 Views ] Urgent
Comment:
Reason For Exam: fever
06/04/24 03:12
Urinalysis Reflex To Culture Urgent
Date Specimen was Collected: 06/04/24
Time Specimen was Collected: 03:11
Urine Microscopic Reflex Cult Urgent
Abnormal Lab Results
06/04/24
03:12
Urine Ketones 3+ A
(Negative)
Leukocyte Esterase Rfl Trace A
(Negative)
Vital Signs
Initial and Last Documented VS:
Initial Vital Signs
Temp Pulse Resp BP Pulse Ox
99.2 F 122 20 118/72 97
06/04/24 01:21 06/04/24 01:21 06/04/24 01:21 06/04/24 01:21 06/04/24 01:21
Last Documented Vital Signs
Temp Pulse Resp BP Pulse Ox
99.2 F 122 20 109/77 97
06/04/24 01:21 06/04/24 01:21 06/04/24 01:21 06/04/24 01:43 06/04/24 01:45
<ADAM Lino - Last Filed: 06/04/24 02:46>
MDM/Problems Addressed
Differential Diagnosis Includes:
COVID, influenza
<Kinjal Lam [facility] - Last Filed: 06/04/24 02:46>
*Critical Care Note
Total Time (30-74mins, 75-104mins- exclusive of procedures): Not Applicable
ED Attending Note
<ADAM Lino - Last Filed: 06/04/24 02:46>
-
Portions of this chart may have been created with voice recognition software.� Occasional wrong word or��sound alike� substitutions may have occurred due to the inherent limitations of voice recognition software.
<Camilo Anton DO - Last Filed: 06/04/24 04:21>
ED Attending Note
Patient seen and examined by attending physician: Yes
I performed the substantive portion of visit, reviewed & personally made and approve the management plan that is documented in note by myself or JANINE.: Yes
ED Attending Note:
This a pleasant 23-year-old female presents to the emergency department with fever. She had been feeling well up until today when she developed body aches and fever. She states that her Tmax was 104 degrees. She took 2 extra strength which she
states that she soon vomited up. Upon arrival she was afebrile. She did feel slightly nauseated but that also resolved. She reports no abdominal pain. Denies chest pain or shortness of breath. Denies cough congestion or any urinary symptoms.
Patient was seen in conjunction with the PA student. I have reviewed and agree with the history and treatment plan presented. On my independent physical exam, patient is awake, alert, and oriented x3 minimal acute distress. Heart is regular rate
rhythm. Lungs are clear to auscultation bilaterally without wheezes rales or rhonchi present. Abdomen soft nontender nondistended hepatosplenomegaly.
Discharge Plan
Departure
Prescriptions:
No Action
paroxetine HCl 20 mg Tablet
20 mg PO DAILY
ondansetron 4 mg Tablet,Disintegrating
4 mg PO TIDPRN PRN (Reason: nausea/vomiting) Qty: 4 0RF
ondansetron 4 mg tablet,disintegrating
4 mg PO Q8H PRN (Reason: nausea and vomiting) Qty: 10 0RF
Referrals:
Jonnie Melgar MD [Family Provider] -
Interventions
Interventions:
*Risk Screen - Suicide Last Done: 06/04/24 01:24
*Neglect/Abuse Screening Last Done: 06/04/24 01:24
ED- Neurological Assessment Last Done: 06/04/24 01:45
ED-Skin Assessment Last Done: 06/04/24 01:45
Discharge Date and Time
Print Language: JORDANIAN
[2024-06-04 01:43] VITALS: BP 109/77
[2024-06-04 01:45] VITALS: BMI 16.5
[2024-06-04 02:00] VITALS: BP 106/70
[2024-06-04 02:16] LABS: COVID-19 Antigen Negative (Negative)
[2024-06-04 03:00] VITALS: BP 110/70
[2024-06-04 03:57] LABS: Urine Albumin Trace (Neg - Trace); Urine Bilirubin Negative (Negative); Urine Character Clear (Clear); Urine Color Yellow; Urine Glucose Negative (Negative); Urine Ketone 3+ (Negative); Urine Leukocyte Trace (Negative); Urine Nitrite Negative (Negative); Urine Occult Blood Negative (Negative); Urine Urobilinogen Negative (Neg - 1+)
[2024-06-04] MEDS: TYLENOL 650 MG PO (04:28)
[2024-06-04 04:33] LABS: HCG, Urine Qualitative Screen Negative
[2024-06-04] MEDS: ZOFRAN ODT (ORALLY DISINTEGRATING) 4 MG PO (04:33)
[2024-06-04 04:38] LABS: Urine Amorphous Seen; Urine Bacteria Many (Negative); Urine Mucus Many; Urine Squamous Cell >30 /LPF (Few)
[2024-06-04 04:43] VITALS: BP 123/84
--- NOTE | 2024-06-04 06:43 | EDRN ---
[facility] downtime from 05:00-06:30
== END 2024-06-04 05:30 | disposition home or self-care (01) ==
LOC: EMR 01:18
PROVIDERS: EMERGENCY PHYSICIAN Student in an Organized Health Care Education/Training Program
DX: R50.9 Fever, unspecified (principal); R11.10 Vomiting, unspecified; R16.2 Hepatomegaly with splenomegaly, not elsewhere classified
CPT/HCPCS: 99284; 71046; 81003; 81015; 81025; 87086; 87502; 87811

== ENCOUNTER 2024-07-22 05:44 | Emergency (ER) | payer OTHER, SELFPAY ==
[2024-07-22 05:46] VITALS: BP 128/83
--- NOTE | 2024-07-22 05:47 | ED.GENMED ---
History of Present Illness
<Chino Pinedo MD - Last Filed: 07/22/24 05:49>
General
Chief Complaint: Abdominal Pain
Source: patient, records and ambulance crew
Exam Limitations: none
Time Seen by Provider: 07/22/24 05:47
Nursing documentation reviewed up to this point in time: agreed with
History of Present Illness
History of Present Illness:
23-year-old female with a past medical history as noted presents to the ER via EMS for evaluation of abdominal pain. Patient reports that she woke up to go to the bathroom this morning around 4 AM and noted pain in the right lower abdomen. Called
EMS to bring him to the hospital for evaluation. Pain located in right lower quadrant does not radiate. Denies any associated nausea, vomiting, diarrhea. Denies any recent fevers or chills. Denies any urinary tract symptoms. Denies any vaginal
bleeding or discharge. She denies any other complaints. Denies prior surgeries. Per EMS they did give her 60 mcg of fentanyl which improved her symptoms.
Past History
<Chino Pinedo MD - Last Filed: 07/22/24 05:49>
Past History
ED Past Medical History: Psychiatric (Anxiety); Negative Asthma, HTN, Hypercholesterolemia or NIDDM
ED Past Surgical History: None
Social History
Tobacco: Non-smoker
Alcohol: None
Drug: None
Personal: Single
Living: with family
Employment: Employed
Family History
Family History: Other (Not pertinent.)
Review of Systems
<Chino Pinedo MD - Last Filed: 07/22/24 05:49>
Review of Systems
All Other Systems: ROS reviewed and negative except as documented in HPI and ROS
Constitutional: Denies fever or chills
Respiratory: Denies trouble breathing
Cardiac: Denies chest pain
ABD/GI: Reports abdominal pain; Denies nausea, vomiting or diarrhea
: Denies dysuria, frequency, flank pain or bleeding
Musculoskeletal: Denies neck pain or back pain
Neurological: Denies headache
Phy Exam
<Chino Pinedo MD - Last Filed: 07/22/24 05:49>
Physical Exam
Physical Exam:
General: Awake, alert, oriented x3; no acute distress
Head: Normocephalic, atraumatic
Eyes: Conjunctiva normal, sclera anicteric
Throat: Airway intact, handling secretions
Neck: Trachea midline, supple without meningismus
Lungs: Clear to auscultation bilaterally, no wheezing, rales, rhonchi
Heart: Regular rate and rhythm, no murmurs, gallops, or rubs
Abd: Soft, non distended, nontender
Neuro: No gross deficits
Skin: no rash
Extremities: Warm well-perfused
Scores
<Chino Pniedo MD - Last Filed: 07/22/24 05:49>
Heart Failure Risk
Heart Failure Risk Score: Not Applicable
Heart Score for Chest Pain Patients
STEMI patient?: Not applicable
Withdrawal Assessment of Alcohol
Withdrawal Assessment Completed?: Not applicable
Course
<Chino Pinedo MD - Last Filed: 07/22/24 05:49>
Orders/Labs/Results
Orders:
Orders
07/22/24 05:46
Test Result ONCE
07/22/24 05:57
Complete Blood Count/With Diff Urgent
07/22/24 06:15
Urinalysis Reflex To Culture Urgent
Date Specimen was Collected: 07/22/24
Time Specimen was Collected: 06:14
Urine Microscopic Reflex Cult Urgent
Urine Culture Urgent
FEMI Source: U
Specimen Description:
Date Specimen was Collected: 07/22/24
Time Specimen was Collected: 06:14
07/22/24 06:18
Ketorolac [Toradol] 15 mg IV NOW STA
Ondansetron Injectable [Zofran] 4 mg IV NOW STA
07/22/24 06:19
Ketorolac [Toradol] 15 mg .ROUTE .STK-MED ONE
Ondansetron Injectable [Zofran] 4 mg .ROUTE .STK-MED ONE
07/22/24 06:25
Comprehensive Metabolic Panel Urgent
HCG, Serum Qualitative Screen Urgent
07/22/24 06:59
CT Abd/pel W Iv And Oral Contr Urgent
Comment:
Reason For Exam: RLQ abd pain
Iohexol [Omnipaque] See Protocol PO NOW STA
07/22/24 08:51
Ondansetron Injectable [Zofran] 4 mg IV NOW STA
Abnormal Lab Results
07/22/24 07/22/24 07/22/24
05:57 06:15 06:25
RBC 4.17 L 10^6/uL
(4.20-5.40)
Hgb 11.9 L g/dL
(12.0-16.0)
Hct 35.9 L %
(37.0-47.0)
Potassium 3.3 L mmol/L
(3.5-5.1)
Glucose 108 H mg/dl
(70-99)
Ur Occult Blood Reflex Trace A
(Negative)
Leukocyte Esterase Rfl Trace A
(Negative)
Urine RBC 30-40 A /HPF
(0-2)
Urine Bacteria (Reflex) Moderate A
(Negative)
07/22/24 05:57
07/22/24 06:25
Vital Signs
Initial and Last Documented VS:
Initial Vital Signs
Temp Pulse Resp BP Pulse Ox
98.4 F 103 18 128/83 100
07/22/24 05:46 07/22/24 05:46 07/22/24 05:46 07/22/24 05:46 07/22/24 05:46
Last Documented Vital Signs
Temp Pulse Resp BP Pulse Ox
97.8 F 78 16 124/76 100
07/22/24 10:30 07/22/24 09:04 07/22/24 09:04 07/22/24 09:04 07/22/24 10:29
<Joshua Renee PA-C - Last Filed: 07/22/24 12:36>
Orders/Labs/Results
Orders:
Orders
07/22/24 05:46
Test Result ONCE
07/22/24 05:57
Complete Blood Count/With Diff Urgent
07/22/24 06:15
Urinalysis Reflex To Culture Urgent
Date Specimen was Collected: 07/22/24
Time Specimen was Collected: 06:14
Urine Microscopic Reflex Cult Urgent
Urine Culture Urgent
FEMI Source: U
Specimen Description:
Date Specimen was Collected: 07/22/24
Time Specimen was Collected: 06:14
07/22/24 06:18
Ketorolac [Toradol] 15 mg IV NOW STA
Ondansetron Injectable [Zofran] 4 mg IV NOW STA
07/22/24 06:19
Ketorolac [Toradol] 15 mg .ROUTE .STK-MED ONE
Ondansetron Injectable [Zofran] 4 mg .ROUTE .STK-MED ONE
07/22/24 06:25
Comprehensive Metabolic Panel Urgent
HCG, Serum Qualitative Screen Urgent
07/22/24 06:59
CT Abd/pel W Iv And Oral Contr Urgent
Comment:
Reason For Exam: RLQ abd pain
Iohexol [Omnipaque] See Protocol PO NOW STA
07/22/24 08:51
Ondansetron Injectable [Zofran] 4 mg IV NOW STA
Abnormal Lab Results
07/22/24 07/22/24 07/22/24
05:57 06:15 06:25
RBC 4.17 L 10^6/uL
(4.20-5.40)
Hgb 11.9 L g/dL
(12.0-16.0)
Hct 35.9 L %
(37.0-47.0)
Potassium 3.3 L mmol/L
(3.5-5.1)
Glucose 108 H mg/dl
(70-99)
Ur Occult Blood Reflex Trace A
(Negative)
Leukocyte Esterase Rfl Trace A
(Negative)
Urine RBC 30-40 A /HPF
(0-2)
Urine Bacteria (Reflex) Moderate A
(Negative)
07/22/24 05:57
07/22/24 06:25
Vital Signs
Initial and Last Documented VS:
Initial Vital Signs
Temp Pulse Resp BP Pulse Ox
98.4 F 103 18 128/83 100
07/22/24 05:46 07/22/24 05:46 07/22/24 05:46 07/22/24 05:46 07/22/24 05:46
Last Documented Vital Signs
Temp Pulse Resp BP Pulse Ox
97.8 F 78 16 124/76 100
07/22/24 10:30 07/22/24 09:04 07/22/24 09:04 07/22/24 09:04 07/22/24 10:29
<Chino Pinedo MD - Last Filed: 07/22/24 05:49>
MDM/Problems Addressed
Differential Diagnosis Includes:
Appendicitis, nephrolithiasis, UTI, ovarian cyst, ectopic
MDM/Problems Addressed:
23-year-old female presents for evaluation of right lower quadrant abdominal pain that started today around 4 AM. Vitals and exam as above. Will place an IV check labs including CBC CMP. Check hCG. Check CT abdomen pelvis. Reassess after the
above.
<Chino Pinedo MD - Last Filed: 07/22/24 05:49>
*Radiology
Radiology exam reviewed: radiology read reviewed
*Pulse Oximetry
Patient hypoxic: no
*Critical Care Note
Total Time (30-74mins, 75-104mins- exclusive of procedures): Not Applicable
Data Reviewed
Review of Other/Old Records Reveals: Labs and Records
Source: patient and records
<Joshua Renee PA-C - Last Filed: 07/22/24 12:36>
Update Note
Update Note:
Assumed care of patient upon signout pending CT. CT performed. There is a right sided ovarian cyst. There is no other acute findings noted on the CT. Patient reexamined has no discomfort has no pain. Urine with likely contamination. She has no
urinary symptoms. Stable for discharge with abdominal pain
ED Attending Note
<Chino Pinedo MD - Last Filed: 07/22/24 05:49>
-
Portions of this chart may have been created with voice recognition software.� Occasional wrong word or��sound alike� substitutions may have occurred due to the inherent limitations of voice recognition software.
Discharge Plan
Departure
Patient Disposition: Home (Routine Discharge)
Date of Disposition: 07/22/24
Time of Disposition: 12:36
Patient with high blood pressure during this ER visit?: No
Discharge Problem:
Abdominal pain
Instructions: Ovarian Cyst (DC), Abdominal Pain
Prescriptions:
No Action
paroxetine HCl 20 mg Tablet
20 mg PO DAILY
ondansetron 4 mg Tablet,Disintegrating
4 mg PO TIDPRN PRN (Reason: nausea/vomiting) Qty: 4 0RF
ondansetron 4 mg tablet,disintegrating
4 mg PO Q8H PRN (Reason: nausea and vomiting) Qty: 10 0RF
Referrals:
Jonnie Melgar MD [Family Provider] - Follow up in 2-3 days
Activity Restrictions/Additional Instructions:
Thank you for visiting the Emergency Department at [facility].
1. Please schedule a follow up appointment as directed. Call first thing tomorrow morning to make an appointment.
2. If indicated, please take your medications as instructed and indicated on discharge paperwork.
3. If any of your symptoms do not improve, or persist, or become more severe within 6-12 hours, please return to the emergency department for further care.
4. Please return to the emergency department if you develop a headache, neck pain/stiffness, fever greater than 100.4F, chest pain, shortness of breath, persistent nausea, vomiting, slurred speech, difficulty walking, numbness/tingling, weakness,
signs of infection or any other symptoms that are worrisome to you.
Please call [phone] if you have any questions.
Interventions
Interventions:
*Risk Screen - Suicide Last Done: 07/22/24 05:46
*General Assessment Last Done: 07/22/24 05:46
*Neglect/Abuse Screening Last Done: 07/22/24 05:46
ED- Fall Risk Assessment Last Done: 07/22/24 05:54
[place]-[id number]-Yvevedofpq Assessment Last Done: 07/22/24 05:54
Discharge Date and Time
Print Language: MALAWIAN
[2024-07-22 05:48] VITALS: BP 128/83
[2024-07-22 05:52] VITALS: BMI 16.5
[2024-07-22 06:07] LABS: % Basophils 0.7 % (0-2); % Eosinophils 3.2 % (0-6); % Immature Granulocytes 0.3 % (0-0.5); % Lymphocytes 33.2 % (20.5-51.1); % Neutrophils 55.6 % (42.2-75.2); Absolute Basophils 0.1 10^3/uL (0-0.2); Absolute Eosinophils 0.2 10^3/uL (0-0.7); Absolute Lymphocytes 2.5 10^3/uL (1.2-3.4); Absolute Monocytes 0.5 10^3/uL (0.1-0.6); Absolute Neutrophils 4.1 10^3/uL (1.4-6.5); Hematocrit 35.9 % (37.0-47.0); Hemoglobin 11.9 g/dL (12.0-16.0); Mean Corp Hgb Conc. 33.1 g/dL (33.0-37.0); Mean Corpuscular Hgb 28.5 pg (27.0-31.0); Mean Corpuscular Volume 86.1 fL (81.0-99.0); Mean Platelet Volume 9.3 fL (7.4-10.4); Nucleated Red Blood Cells % 0 %; Platelet Count 263 10^3/uL (130-400); Red Blood Cell Count 4.17 10^6/uL (4.20-5.40); Red Cell Dist. Width 13.4 % (11.5-14.5); White Blood Cell Count 7.4 10^3/uL (4.8-10.8)
[2024-07-22] MEDS: ZOFRAN 4 MG IV ×2 (06:22→08:58)
[2024-07-22] MEDS: TORADOL 15 MG IV (06:22)
[2024-07-22 06:26] VITALS: BP 118/82
[2024-07-22 06:43] LABS: Urine Albumin Negative (Neg - Trace); Urine Bilirubin Negative (Negative); Urine Character Clear (Clear); Urine Color Yellow; Urine Glucose Negative (Negative); Urine Ketone Negative (Negative); Urine Leukocyte Trace (Negative); Urine Nitrite Negative (Negative); Urine Occult Blood Trace (Negative); Urine Urobilinogen Negative (Neg - 1+)
[2024-07-22 06:48] LABS: HCG, Serum Qualitative Screen Negative
[2024-07-22 06:57] LABS: ALT (SGPT) 10 U/L (0-35); AST (SGOT) 17 U/L (14-36); Albumin 4.1 g/dl (3.5-5.0); Alkaline Phosphatase 40 U/L (38-126); Blood Urea Nitrogen 13 mg/dl (7-17); Calcium 8.9 mg/dl (8.4-10.2); Carbon Dioxide 23 mmol/L (22-30); Chloride 104 mmol/L (98-107); Estimated Creatinine Clearance 80 ml/min; Glucose 108 mg/dl (70-99); Potassium 3.3 mmol/L (3.5-5.1); Sodium 137 mmol/L (135-145); Total Bilirubin 0.4 mg/dl (0.2-1.3); Total Protein 6.8 g/dl (6.3-8.2); eGFR > 60.00
[2024-07-22 07:00] VITALS: BP 116/78
[2024-07-22] MEDS: OMNIPAQUE 50 ML PO (07:05)
[2024-07-22 07:09] LABS: Urine Mucus Many; Urine Squamous Cell >30 /LPF (Few)
[2024-07-22 07:10] LABS: Urine Bacteria Moderate (Negative); Urine Red Blood Cell 30-40 /HPF (0-2)
[2024-07-22 09:02] VITALS: BP 124/76
[2024-07-22 09:04] VITALS: BP 124/76
== END 2024-07-22 13:19 | disposition home or self-care (01) ==
LOC: EMR 05:44
PROVIDERS: EMERGENCY PHYSICIAN Emergency Medicine
DX: R10.31 Right lower quadrant pain (principal); R11.0 Nausea; N83.201 Unspecified ovarian cyst, right side; F41.9 Anxiety disorder, unspecified; F32.A Depression, unspecified; Z86.16 Personal history of COVID-19
CPT/HCPCS: 99284; 96375; 96374; 96376; 74177; 80053; 81003; 81015; 84703; 85025; 87086; Q9967

== ENCOUNTER 2024-12-23 10:23 | Emergency (ER) | payer OTHER, SELFPAY ==
[2024-12-23] VITALS (9 sets, daily range): BP systolic 114–122; BP diastolic 77–87; BMI 18.0
[2024-12-23] MEDS: NSS 1000 IV (11:22)
[2024-12-23] MEDS: TORADOL 15 MG IV (11:22)
--- NOTE | 2024-12-23 11:24 | ED.GENMED ---
History of Present Illness
General
Chief Complaint: Fever
Source: patient
Exam Limitations: none
Time Seen by Provider: 12/23/24 10:45
Nursing documentation reviewed up to this point in time: agreed with
History of Present Illness
History of Present Illness:
Patient presents to ED secondary to 2-day history of fever, sore throat, nonproductive cough, nausea, and bodyache. Denies headache. Denies rash. Denies neck pain. Denies urinary frequency or dysuria. Denies diarrhea. Denies abdominal pain.
Denies chest pain. Denies recent travel. Denies sick contact.
Past History
Past History
ED Past Medical History: Psychiatric (Anxiety); Negative Asthma, HTN, Hypercholesterolemia or NIDDM
ED Past Surgical History: None
Social History
Tobacco: Non-smoker
Alcohol: None
Drug: None
Personal: Single
Living: with family
Employment: Employed
Family History
Family History: Other (Not pertinent.)
Review of Systems
Review of Systems
Allergies reviewed?: Yes
All Other Systems: ROS reviewed and negative except as documented in HPI and ROS
Constitutional: Reports fever
EENT: Reports sore throat
Respiratory: Reports cough
Cardiac: Reports no symptoms
ABD/GI: Reports nausea; Denies abdominal pain, vomiting or diarrhea
: Reports no symptoms
Musculoskeletal: Reports muscle pain
Skin: Reports no symptoms
Neurological: Reports no symptoms
Phy Exam
Physical Exam
Physical Exam:
Physical Exam
General: no apparent distress, not acutely ill. afebrile
Head: nc/at. eomi
Neck: supple. no meningeal signs.
Heart: tachycardic without murmur
Lungs: no acute respiratory distress. clear bilaterally
Abdomen: normal bowel sounds. not tender.
Neuro: alert and oriented x 3. no focal neurological deficits
Skin: no rash
Psychiatric: well kept. interactive and cooperative
Extremities: no edema. no calf tenderness.
Course
Orders/Labs/Results
Orders:
Orders
12/23/24 11:03
0.9% Sodium Chloride 1000 ml [Nss] 1,000 ml IV BOLUS
Ketorolac [Toradol] 15 mg IV NOW STA
Test Result ONCE
CR Chest - 2 Views Urgent
Comment:
Reason For Exam: fever/cough
12/23/24 11:13
COVID-19 Antigen Urgent
Source: Nasal Swab
Complete Blood Count/With Diff Urgent
Comprehensive Metabolic Panel Urgent
HCG, Serum Qualitative Screen Urgent
Magnesium Urgent
Urinalysis Reflex To Culture Urgent
Date Specimen was Collected: 12/23/24
Time Specimen was Collected: 11:11
Urine Microscopic Reflex Cult Urgent
Influenza A+B Rapid Molecular Urgent
FEMI Source: Nasal Swab
Specimen Description:
Rapid Strep Group A Urgent
FEMI Source: Throat/Pharynx
Specimen Description:
Date Specimen was Collected: 12/23/24
Time Specimen was Collected: 11:11
Abnormal Lab Results
12/23/24
11:13
WBC 12.6 H 10^3/uL
(4.8-10.8)
RBC 4.10 L 10^6/uL
(4.20-5.40)
Hct 35.3 L %
(37.0-47.0)
Abs Immat Gran (auto) 0.1 H 10^3/uL
(0-0.05)
Absolute Neuts (auto) 11.4 H 10^3/uL
(1.4-6.5)
Absolute Lymphs (auto) 0.5 L 10^3/uL
(1.2-3.4)
Neutrophils % 90.8 H %
(42.2-75.2)
Lymphocytes % 4.0 L %
(20.5-51.1)
Chloride 108 H mmol/L
(98-107)
Urine Ketones 1+ A
(Negative)
Urine Bacteria (Reflex) Few A
(Negative)
Urine Albumin (Reflex) 1+ A
(Neg - Trace)
12/23/24 11:13
12/23/24 11:13
Vital Signs
Initial and Last Documented VS:
Initial Vital Signs
Pulse Resp
112 15
12/23/24 10:28 12/23/24 10:28
Last Documented Vital Signs
Temp Pulse Resp BP Pulse Ox
98.3 F 108 28 116/82 98
12/23/24 10:30 12/23/24 13:45 12/23/24 13:57 12/23/24 14:00 12/23/24 14:02
MDM/Problems Addressed
MDM/Problems Addressed:
Patient with an unremarkable workup in ED, including blood work, chest x-ray, along with flu/COVID/rapid strep. Initial tachycardia improved significantly with IV fluid administration. At this time, patient feels comfortable going home and
follow-up with her PCP. However, advised return to ED with worsening symptoms. Patient and her father agree with treatment plan.
*Pulse Oximetry
SaO2: 98
Oxygen Mode of Delivery: Room air
Patient hypoxic: no
*Critical Care Note
Total Time (30-74mins, 75-104mins- exclusive of procedures): Not Applicable
ED Attending Note
-
Portions of this chart may have been created with voice recognition software.� Occasional wrong word or��sound alike� substitutions may have occurred due to the inherent limitations of voice recognition software.
Discharge Plan
Departure
Patient Disposition: Home (Routine Discharge)
Date of Disposition: 12/23/24
Time of Disposition: 14:08
Patient with high blood pressure during this ER visit?: No
Condition: Good
Discharge Problem:
Acute viral syndrome
Instructions: Viral Syndrome (DC)
Prescriptions:
No Action
paroxetine HCl 20 mg Tablet
20 mg PO DAILY
ondansetron 4 mg tablet,disintegrating
4 mg PO Q8H PRN (Reason: nausea and vomiting) Qty: 10 0RF
clonazepam 1 mg Tablet
1 mg PO DAILY
Referrals:
Jonnie Melgar Jr., MD [Family Provider]
Activity Restrictions/Additional Instructions:
As discussed, please follow-up with your primary care physician for reevaluation, or consider return to ED with worsening symptoms.
Interventions
Interventions:
*Risk Screen - Suicide Last Done: 12/23/24 10:30
*General Assessment Last Done: 12/23/24 10:30
*Neglect/Abuse Screening Last Done: 12/23/24 10:30
*ED- Fall Risk Assessment Last Done: 12/23/24 10:30
*ED COVID-19 Vaccine History Last Done: 12/23/24 10:30
*Nursing Disposition Last Done: 12/23/24 14:14
ED- Neurological Assessment Last Done: 12/23/24 10:30
ED-Skin Assessment Last Done: 12/23/24 10:30
Discharge Date and Time
Discharge Date/Time: 12/23/24 14:15
Print Language: DUTCH
[2024-12-23 11:40] LABS: % Basophils 0.3 % (0-2); % Eosinophils 0.2 % (0-6); % Immature Granulocytes 0.4 % (0-0.5); % Monocytes 4.3 % (1.7-9.3); % Neutrophils 90.8 % (42.2-75.2); Absolute Immature Granulocytes 0.1 10^3/uL (0-0.05); Absolute Lymphocytes 0.5 10^3/uL (1.2-3.4); Absolute Monocytes 0.5 10^3/uL (0.1-0.6); Absolute Neutrophils 11.4 10^3/uL (1.4-6.5); Hematocrit 35.3 % (37.0-47.0); Mean Corpuscular Hgb 29.3 pg (27.0-31.0); Mean Corpuscular Volume 86.1 fL (81.0-99.0); Mean Platelet Volume 9.2 fL (7.4-10.4); Nucleated Red Blood Cells % 0 %; Platelet Count 229 10^3/uL (130-400); Red Cell Dist. Width 12.4 % (11.5-14.5); White Blood Cell Count 12.6 10^3/uL (4.8-10.8)
[2024-12-23 11:41] LABS: Urine Albumin 1+ (Neg - Trace); Urine Bilirubin Negative (Negative); Urine Character Clear (Clear); Urine Color Yellow; Urine Glucose Negative (Negative); Urine Ketone 1+ (Negative); Urine Leukocyte Negative (Negative); Urine Nitrite Negative (Negative); Urine Occult Blood Negative (Negative); Urine Specific Gravity 1.015 (<1.030); Urine Urobilinogen 1+ (Neg - 1+)
[2024-12-23 11:49] LABS: HCG, Serum Qualitative Screen Negative
[2024-12-23 11:52] LABS: ALT (SGPT) 12 U/L (0-35); AST (SGOT) 19 U/L (14-36); Alkaline Phosphatase 44 U/L (38-126); Blood Urea Nitrogen 14 mg/dl (7-17); Calcium 9.3 mg/dl (8.4-10.2); Carbon Dioxide 24 mmol/L (22-30); Chloride 108 mmol/L (98-107); Estimated Creatinine Clearance 118 ml/min; Glucose 98 mg/dl (70-99); Magnesium 1.7 mg/dl (1.6-2.3); Sodium 139 mmol/L (135-145); Total Bilirubin 0.6 mg/dl (0.2-1.3); eGFR > 60.00
[2024-12-23 11:55] LABS: COVID-19 Antigen Negative (Negative)
[2024-12-23 12:11] LABS: Urine Mucus Few; Urine Squamous Cell >30 /LPF (Few)
[2024-12-23 12:12] LABS: Urine Bacteria Few (Negative); Urine Red Blood Cell 0-2 /HPF (0-2)
== END 2024-12-23 14:15 | disposition home or self-care (01) ==
LOC: EMR 10:23
PROVIDERS: EMERGENCY PHYSICIAN Emergency Medicine; FAMILY PHYSICIAN Family Medicine
DX: B34.9 Viral infection, unspecified (principal); Z11.52 Encounter for screening for COVID-19
CPT/HCPCS: 99284; 96374; 96361; 71046; 80053; 81003; 81015; 83735; 84703; 85025; 87070; 87502; 87811; 87880